=== PATIENT | female | born 1995 | race Caucasian/White ===

== ENCOUNTER 2016-11-16 16:58 | Emergency (ER) | payer OTHER ==
[2016-11-16 17:03] VITALS: TEMP 98.2; BMI 38.3
[2016-11-16 19:53] LABS: BASOPHIL 0.4 % (0-2.0); EOSINOPHIL 5.1 % (0-4.5); MCH 26.4 pg (25.7-33.7); MEAN CELL VOLUME 82.5 fl (80-96); MEAN PLT VOLUME 8.8 fl (7.5-11.1); NEUTROPHILS 61.9 % (42.8-82.8); PLATELET COUNT 290 K/MM3 (134-434); RDW 15.3 % (11.6-15.6); WHITE BLOOD COUNT 9.1 K/mm3 (4.0-10.0)
[2016-11-16 19:59] LABS: URINE APPEARANCE CLEAR; URINE BILIRUBIN NEGATIVE (NEGATIVE); URINE COLOR STRAW; URINE GLUCOSE (UA) NEGATIVE (NEGATIVE); URINE KETONE NEGATIVE (NEGATIVE); URINE NITRITE NEGATIVE (NEGATIVE); URINE PROTEIN NEGATIVE (NEGATIVE); URINE UROBILINOGEN NEGATIVE E.U./dl (0.2-1.0)
--- NOTE | 2016-11-16 20:01 | PDOC ---
History of Present Illness - General Chief Complaint: Vaginal Bleeding Stated Complaint: VAGINAL BLEEDING Time Seen by Provider: 11/16/16 19:36 History Source: Patient Exam Limitations: No Limitations - History of Present Illness Initial Comments: 11/16/16 19:58 Patient is a 21 LMP 09/04/16 complaining vaginal spotting started at midday. states she had some lower back pain earlier in the day but currently has no pain. She has had no OBS care for this . Has appointment tomorrow PMD: does not remember name, PMHX: neg PSOCHX: neg etoh, drug, cig ALL: NKDA GENERAL/CONSTITUTIONAL: [No fever or chills. No weakness. No weight change.] HEAD, EYES, EARS, NOSE AND THROAT: [No change in vision. No ear pain or discharge. No sore throat.] CARDIOVASCULAR: [No chest pain or shortness of breath.] RESPIRATORY: [No cough, wheezing, or hemoptysis.] GASTROINTESTINAL: [No nausea, vomiting, diarrhea or constipation. No rectal bleeding.] GENITOURINARY: [No dysuria, frequency, or change in urination.] MUSCULOSKELETAL: [No joint or muscle swelling or pain. No neck or back pain.] SKIN AND BREASTS: [No rash or easy bruising.] NEUROLOGIC: [No headache, vertigo, loss of consciousness, or loss of sensation.] PSYCHIATRIC: [No depression or anxiety.] ENDOCRINE: [No increased thirst. No abnormal weight change.] HEMATOLOGIC/LYMPHATIC: [No anemia, easy bleeding, or history of blood clots.] ALLERGIC/IMMUNOLOGIC: [No hives or skin allergy. No latex allergy.] GENERAL: [The patient is awake, alert, and fully oriented, in no acute distress. ] HEAD: [Normal with no signs of trauma.] EYES: [Pupils equal, round and reactive to light, extraocular movements intact, sclera anicteric, conjunctiva clear.] ENT: [Ears normal, nares patent, oropharynx clear without exudates. Moist mucous membranes.] NECK: [Normal range of motion, supple without lymphadenopathy, JVD, or masses.] LUNGS: [Breath sounds equal, clear to auscultation bilaterally. No wheezes, and no crackles.] HEART: [Regular rate and rhythm, normal S1 and S2 without murmur, rub.] ABDOMEN: [Soft, nontender, normoactive bowel sounds. No guarding, no rebound. No masses.] PELVIC: normal external genitalia, small amount of pink stain in vault, irritation to the cervix, no bleeding from closed os EXTREMITIES: [Normal range of motion, no edema. No clubbing or cyanosis. No cords, erythema, or tenderness.] NEUROLOGICAL: [Cranial nerves II through XII grossly intact. Normal speech, normal gait.] PSYCH: [Normal mood, normal affect.] SKIN: [Warm, Dry, normal turgor, no rashes or lesions noted.] Past History - Past Medical History Allergies/Adverse Reactions: Allergies Allergy/AdvReac Type Severity Reaction Status Date / Time No Known Allergies Allergy Verified 11/16/16 16:59 Home Medications: Ambulatory Orders NK [No Known Home Medication] 07/23/16 Other medical history: denies - Reproductive History Is Patient Now?: Yes (#): 3 Para: 0 Spontaneous : 2 - Psycho/Social/Smoking Cessation Hx Anxiety: No Suicidal Ideation: No Smoking History: Never smoked Have you smoked in the past 12 months: No Number of Cigarettes Smoked Daily: 0 Information on smoking cessation initiated: No Hx Alcohol Use: No Drug/Substance Use Hx: No Substance Use Type: None *Physical Exam - Vital Signs Last Vital Signs Temp Pulse Resp BP Pulse Ox 98.2 F 73 19 108/67 100 11/16/16 16:59 11/16/16 16:59 11/16/16 16:59 11/16/16 16:59 11/16/16 16:59 ED Treatment Course - LABORATORY CBC & Chemistry Diagram: 11/16/16 19:48 11/16/16 19:48 Medical Decision Making - Medical Decision Making 11/16/16 20:34 Patient is a 21 y.o female LMP 09/04/16 c/o vaginal spotting consistent with threatened ab. bedside US done (+) IUP FHR 171, labs pending 11/16/16 21:20 Laboratory Tests 11/16/16 11/16/16 19:48 19:48 WBC 9.1 Hgb 12.4 Hct 38.7 Plt Count 290 Sodium 140 Potassium 3.8 Chloride 106 Carbon Dioxide 25 Anion Gap 9 BUN 6 L D Creatinine 0.6 Beta HCG, Quant 85417.3 T&S O+ I discussed the physical exam findings, ancillary test results and final diagnoses with the patient. I answered all of the patient's questions. The patient was satisfied with the care received and felt comfortable with the discharge plan and treatment plan. The Patient agrees to follow up with the primary care physician within 24-72 hours. *DC/Admit/Observation/Transfer Diagnosis at time of Disposition: Threatened - Discharge Dispostion Disposition: HOME Condition at time of disposition: Stable - Referrals Referrals: Sacha Ledezma [Primary Care Provider] - - Patient Instructions Printed Discharge Instructions: DI for Threatened Additional Instructions: Your Discharge Instructions: You must call primary care physician within 24 hours to arrange follow-up. Return to the Emergency Department with any new, persistent or worsening symptoms, for fever, chills, SOB, dizziness or any other concerning changes that may occur. keep your follow up appointment for tomorrow.
[2016-11-16 20:04] LABS: URINE BLOOD 2+ (NEGATIVE); URINE LEUK ESTERASE 2+ (NEGATIVE)
[2016-11-16 20:05] LABS: URINE BACTERIA RARE /hpf (NONE SEEN); URINE RBC 4 /hpf (0-3); URINE WBC 4 /hpf (3-5)
[2016-11-16 20:21] LABS: ALBUMIN 3.9 g/dl (3.4-5.0); ALK PHOS 94 U/L (45-117); ANION GAP 9 (8-16); BILIRUBIN,TOTAL 0.2 mg/dL (0.2-1.0); CALCIUM 8.5 mg/dL (8.5-10.1); CO2 25 mmol/L (21-32); CREATININE 0.6 mg/dL (0.55-1.02); GLUCOSE,RANDOM 100 mg/dL (74-106); SGOT/AST 9 U/L (15-37); SGPT/ALT 29 U/L (12-78); TOT PROT 7.4 g/dl (6.4-8.2)
[2016-11-16 20:50] VITALS: BP 129/85; PULSE 89
== END 2016-11-16 21:38 | disposition home or self-care (01) ==
LOC: JER 16:58
DX: O20.0 Threatened abortion (principal); Z3A.12 12 weeks gestation of pregnancy
CPT/HCPCS: 36415; 80053; 81003; 81015; 84702; 85025; 86850; 86900; 86901; 99282-25

== ENCOUNTER 2017-06-04 08:20 | Inpatient (IN) | payer OTHER ==
[2017-06-04] MEDS ORDERED: AMPICILLIN IVPB ONE (10:55)
[2017-06-04] MEDS ORDERED: SODIUM CHLORIDE IVPB ONE (10:55)
[2017-06-04] MEDS ORDERED: AMPICILLIN - 2 GM in SODIUM CHLORIDE 100 ML IVPB SCH (11:00)
[2017-06-04] MEDS ORDERED: OXYTOCIN 15 UNITS/ LR 250 ML 250 ML IVPB SCH (11:00)
[2017-06-04] MEDS ORDERED: DEXTROSE 5%-LACTATED RINGERS 1,000 ML IV SCH (11:00)
[2017-06-04 12:12] VITALS: BMI 36.0
[2017-06-04 12:16] LABS: BASOPHIL 0.3 % (0-2.0); EOSINOPHIL 0.4 % (0-4.5); MCH 25.1 pg (25.7-33.7); MCHC 32.7 g/dl (32.0-36.0); MEAN CELL VOLUME 76.7 fl (80-96); NEUTROPHILS 73.9 % (42.8-82.8); PLATELET COUNT 297 K/MM3 (134-434); RDW 14.1 % (11.6-15.6); WHITE BLOOD COUNT 9.4 K/mm3 (4.0-10.0)
[2017-06-04 12:41] LABS: INR 0.98 (0.82-1.09); PROTHROMBIN TIME (PATIENT) 10.8 SEC (9.98-11.88)
[2017-06-04 12:43] LABS: ACTIVATED PTT 27.2 SECONDS (26.9-34.4)
[2017-06-04 12:46] LABS: ANION GAP 8 (8-16); CO2 26 mmol/L (21-32); CREATININE 0.5 mg/dL (0.55-1.02); GLUCOSE,RANDOM 82 mg/dL (74-106)
[2017-06-04 14:14] LABS: URINE MARIJUANA THC NEGATIVE ng/ml (CUTOFF=50)
[2017-06-04] MEDS: AMPICILLIN - 1 GM in SODIUM CHLORIDE 100 ML IVPB SCH ×2 (14:40→18:45)
--- NOTE | 2017-06-04 15:20 | PN ---
Progress Note (short form) - Note Progress Note: cx 2 cm 75 vx -3 mr, fhr cat 1, no contraction, pitocin rba discussed , agreed to have pitocin
[2017-06-04] MEDS ORDERED: PROMETHAZINE HCL 25 MG/1 ML VIAL IVPUSH ONE (18:00)
[2017-06-04] MEDS ORDERED: BUTORPHANOL TARTRATE 1 MG/ML VIAL IVPUSH ONE (18:00)
--- NOTE | 2017-06-04 18:08 | PN ---
Progress Note (short form) - Note Progress Note: variable decel after reciving stadol, cx 4 cm 80 vx -1 mr, saclp electode applied , o2. lt side, increase iv fluid , pitocin stopped , revaluate
[2017-06-04 20:02] LABS: ARTERIAL BLD GAS O2 SATURATION 47.4 % (90-98.9); ARTERIAL BLOOD GAS BASE EXCESS -5.2 meq/l (-2-2); ARTERIAL BLOOD GAS HCO3 22.7 meq/L (22-26); ARTERIAL BLOOD GAS PO2 24.5 mmHg (80-100)
[2017-06-04 20:07] LABS: PT. ON O2? NO
[2017-06-04 20:09] LABS: ARTERIAL BLOOD GAS pH 7.23 (7.35-7.45)
[2017-06-04] MEDS ORDERED: D5W-LR W/ 20 UNITS OXYTOCIN 1,000 ML IV SCH ×2 (21:00→22:00)
[2017-06-04] MEDS ORDERED: IBUPROFEN 600 MG TABLET (FP) PO PRN (21:58)
[2017-06-04] MEDS ORDERED: oxyCODONE HCL 5 MG TABLET PO PRN (21:58)
[2017-06-04] MEDS ORDERED: BISACODYL 10 MG SUPP.RECT RC PRN (21:58)
[2017-06-04] MEDS ORDERED: WITCH HAZEL 50% (TUCKS) 40 PAD/JAR PAD TP PRN (21:58)
[2017-06-04] MEDS ORDERED: BENZOCAINE 20% 57 GM BOTTLE TP PRN (21:58)
[2017-06-04] MEDS ORDERED: BENZOCAINE 28 GM HEMORRHOIDAL OINTMENT TP PRN (21:58)
[2017-06-04] MEDS ORDERED: ACETAMINOPHEN 325 MG TABLET (FP) PO PRN (21:58)
[2017-06-04] MEDS ORDERED: METHYLERGONOVINE MALEATE 0.2 MG/1 ML AMP IM PRN (21:58)
[2017-06-05] MEDS: FERROUS SO4 325 MG TABLET (FP) PO SCH ×3 (00:43→21:42)
--- NOTE | 2017-06-05 02:29 | PN ---
Progress Note (short form) - Note Progress Note: ppd 1 doing well, no c/o voids ok Last Vital Signs Temp Pulse Resp BP Pulse Ox 98.5 F 69 18 118/69 06/04/17 20:10 06/04/17 20:30 06/04/17 20:30 06/04/17 20:30 uterus firm, non tender lochia mild no calf tenderness plan ambualte ,cbc
[2017-06-05 09:08] LABS: BASOPHIL 0.2 % (0-2.0); EOSINOPHIL 0.6 % (0-4.5); MCH 24.8 pg (25.7-33.7); MCHC 32.1 g/dl (32.0-36.0); MEAN CELL VOLUME 77.2 fl (80-96); MEAN PLT VOLUME 9.5 fl (7.5-11.1); NEUTROPHILS 70.1 % (42.8-82.8); PLATELET COUNT 254 K/MM3 (134-434); RDW 14.4 % (11.6-15.6)
[2017-06-05] MEDS ORDERED: DIPHTH,PERTUSS(ACELL),TET 0.5 ML DISP.SYRIN IM ONE (10:00)
[2017-06-05] MEDS: PRENATAL VITAMINS W/ FOLIC ACID TABLET (FP) PO SCH (10:21)
[2017-06-05] MEDS ORDERED: SENNOSIDES/DOCUSATE COMBO (SENNA PLUS) TABLET (UD) PO PRN (22:00)
[2017-06-06 08:26] VITALS: BP 132/76; PULSE 84; TEMP 97.9
[2017-06-06] MEDS: PRENATAL VITAMINS W/ FOLIC ACID TABLET (FP) PO SCH (09:20)
[2017-06-06] MEDS: FERROUS SO4 325 MG TABLET (FP) PO SCH (09:20)
--- NOTE | 2017-06-06 10:47 | PN ---
Post Progress Note Post Day: 2 Type of Delivery: Vital Signs: Vital Signs Temperature 97.9 F 06/06/17 08:24 Pulse Rate 84 06/06/17 08:24 Respiratory Rate 20 06/06/17 08:24 Blood Pressure 132/76 06/06/17 08:24 O2 Sat by Pulse Oximetry (%) Uterus: Yes: Fundus Firm Abdomen/GI: Yes: Abdomen soft Lochia: Yes: Rubra Lochia, amount: Small Perineum: Yes: Intact Activity: Ambulating - Labs Labs: CBC WBC 12.0 K/mm3 (4.0-10.0) H 06/05/17 08:00 RBC 3.61 M/mm3 (3.60-5.2) D 06/05/17 08:00 Hgb 8.9 GM/dL (10.7-15.3) L D 06/05/17 08:00 Hct 27.8 % (32.4-45.2) L D 06/05/17 08:00 MCV 77.2 fl (80-96) L 06/05/17 08:00 MCH 24.8 pg (25.7-33.7) L 06/05/17 08:00 MCHC 32.1 g/dl (32.0-36.0) 06/05/17 08:00 RDW 14.4 % (11.6-15.6) 06/05/17 08:00 Plt Count 254 K/MM3 (134-434) 06/05/17 08:00 MPV 9.5 fl (7.5-11.1) 06/05/17 08:00 Neutrophils % 70.1 % (42.8-82.8) 06/05/17 08:00 Lymphocytes % 21.5 % (8-40) 06/05/17 08:00 Monocytes % 7.6 % (3.8-10.2) D 06/05/17 08:00 Eosinophils % 0.6 % (0-4.5) 06/05/17 08:00 Basophils % 0.2 % (0-2.0) 06/05/17 08:00 Assessment/Plan as above oob dc home today
== END 2017-06-06 12:45 | disposition home or self-care (01) | DRG 560 ==
LOC: JDEL 08:20 → JLDR 10:10 → J3W 21:11
PROVIDERS: ADMIT Obstetrics & Gynecology; ATTEND Obstetrics & Gynecology
PROC: 10E0XZZ Delivery of Products of Conception, External Approach (ICD-10-PCS; principal; 2017-06-04)
DX: O80 Encounter for full-term uncomplicated delivery (principal); Z3A.37 37 weeks gestation of pregnancy; Z37.0 Single live birth
CPT/HCPCS: 36415; 36600; 59409; 80048; 80307; 82803; 85025; 85610; 85730; 86593; 86850; 86900; 86901; 90715

== ENCOUNTER 2020-09-28 07:14 | Inpatient (IN) | payer OTHER ==
[2020-09-28] MEDS: DEXTROSE 5%-LACTATED RINGERS 1,000 ML IV SCH (08:00)
[2020-09-28] MEDS ORDERED: PROMETHAZINE HCL 25 MG/1 ML VIAL IVPUSH ONE (08:42)
[2020-09-28] MEDS ORDERED: BUTORPHANOL TARTRATE 1 MG/ML VIAL IVPUSH ONE (08:42)
[2020-09-28 08:47] VITALS: BMI 40.7
[2020-09-28 08:52] LABS: BASO % 0.6 % (0-2.0); EOS % 1.2 % (0-4.5); HEMATOCRIT 33.6 % (32.4-45.2); HEMOGLOBIN 10.5 GM/dL (10.7-15.3); MCH 24.4 pg (25.7-33.7); MCHC 31.4 g/dl (32.0-36.0); MEAN CELL VOLUME 77.8 fl (80-96); MEAN PLT VOLUME 9.2 fl (7.5-11.1); MONO % 4.1 % (3.8-10.2); NEUT % 73.1 % (42.8-82.8); PLATELET COUNT 299 K/MM3 (134-434); RBC 4.32 M/mm3 (3.60-5.2); WHITE BLOOD COUNT 7.3 K/mm3 (4.0-10.0)
[2020-09-28] MEDS ORDERED: OXYTOCIN 30 UNITS in 0.9% NS 30 UNIT/500 ML INFUS.BAG IVPB ONE (08:53)
[2020-09-28] MEDS: OXYTOCIN 30 UNITS in 0.9% NS 30 UNIT/500 ML INFUS.BAG IVPB SCH (09:00)
[2020-09-28 09:08] LABS: INR 0.95 (0.83-1.09); PROTHROMBIN TIME (PATIENT) 11.5 SEC (9.7-13.0)
[2020-09-28 09:10] LABS: ACTIVATED PTT 26.6 SECONDS (25.2-36.5)
[2020-09-28 09:19] LABS: POTASSIUM 4.2 mmol/L (3.5-5.1)
[2020-09-28 09:20] LABS: CALCIUM 8.6 mg/dL (8.5-10.1)
[2020-09-28 09:22] LABS: BLOOD UREA NITROGEN 6.2 mg/dL (7-18)
[2020-09-28 09:24] LABS: CREATININE 0.6 mg/dL (0.55-1.3)
[2020-09-28] MEDS ORDERED: PROMETHAZINE HCL 25 MG/1 ML VIAL ONE ×2 (10:49→12:46)
[2020-09-28] MEDS ORDERED: BUTORPHANOL TARTRATE 2 MG/ML VIAL ONE (10:49)
[2020-09-28] MEDS ORDERED: BUTORPHANOL TARTRATE 1 MG/ML VIAL ONE (12:46)
[2020-09-28] MEDS ORDERED: OXYTOCIN 20 UNITS in 0.9% NS 20 UNIT/1,000 ML INFUS.BAG IV ONE (12:47)
[2020-09-28] MEDS ORDERED: BUTORPHANOL TARTRATE 1 MG/ML VIAL IVPB ONE (13:30)
[2020-09-28] MEDS ORDERED: PROMETHAZINE HCL 25 MG/1 ML VIAL IVPB ONE (13:30)
[2020-09-28] MEDS: OXYTOCIN 20 UNITS in 0.9% NS 20 UNIT/1,000 ML INFUS.BAG IV SCH (13:30)
[2020-09-28] MEDS ORDERED: BENZOCAINE 20% 57 GM BOTTLE TP PRN (13:46)
[2020-09-28] MEDS ORDERED: METHYLERGONOVINE MALEATE 0.2 MG/1 ML AMP IM PRN (13:46)
[2020-09-28] MEDS ORDERED: BENZOCAINE 28 GM HEMORRHOIDAL OINTMENT TP PRN (13:46)
[2020-09-28] MEDS ORDERED: WITCH HAZEL 50% (TUCKS) 40 PAD/JAR PAD TP PRN (13:46)
[2020-09-28] MEDS ORDERED: IBUPROFEN 600 MG TABLET (FP) PO PRN (13:46)
[2020-09-28] MEDS ORDERED: BISACODYL 10 MG SUPP.RECT RC PRN (13:46)
[2020-09-28] MEDS ORDERED: ACETAMINOPHEN 325 MG TABLET (FP) PO PRN (13:46)
[2020-09-28] MEDS: FERROUS SO4 325 MG TABLET (FP) PO SCH (23:06)
[2020-09-29 06:53] LABS: BASO % 0.5 % (0-2.0); EOS % 1.9 % (0-4.5); HEMATOCRIT 32.6 % (32.4-45.2); HEMOGLOBIN 10.4 GM/dL (10.7-15.3); LYMPH % 21.8 % (8-40); MCH 24.4 pg (25.7-33.7); MCHC 31.7 g/dl (32.0-36.0); MEAN CELL VOLUME 76.8 fl (80-96); MEAN PLT VOLUME 8.8 fl (7.5-11.1); MONO % 5.2 % (3.8-10.2); NEUT % 70.6 % (42.8-82.8); PLATELET COUNT 277 K/MM3 (134-434); RBC 4.25 M/mm3 (3.60-5.2); RDW 15.2 % (11.6-15.6); WHITE BLOOD COUNT 8.7 K/mm3 (4.0-10.0)
[2020-09-29] MEDS: FERROUS SO4 325 MG TABLET (FP) PO SCH ×2 (09:19→21:07)
[2020-09-29] MEDS: PRENATAL VITAMINS W/ FOLIC ACID TABLET (FP) PO SCH (09:19)
[2020-09-29] MEDS ORDERED: DIPHTH,PERTUSS(ACELL),TET 0.5 ML DISP.SYRIN IM ONE (10:00)
[2020-09-29] MEDS: OXYTOCIN 20 UNITS in 0.9% NS 20 UNIT/1,000 ML INFUS.BAG IV SCH (19:55)
[2020-09-29] MEDS: OXYTOCIN 30 UNITS in 0.9% NS 30 UNIT/500 ML INFUS.BAG IVPB SCH (19:55)
[2020-09-29] MEDS: DEXTROSE 5%-LACTATED RINGERS 1,000 ML IV SCH (19:55)
[2020-09-29] MEDS ORDERED: SENNOSIDES/DOCUSATE COMBO (SENNA PLUS) TABLET (UD) PO PRN (22:00)
[2020-09-30 11:13] VITALS: BP 121/77; PULSE 93; TEMP 98.4
[2020-09-30] MEDS: FERROUS SO4 325 MG TABLET (FP) PO SCH (11:27)
[2020-09-30] MEDS: PRENATAL VITAMINS W/ FOLIC ACID TABLET (FP) PO SCH (11:28)
[2020-10-01 08:49] LABS: POC NITRAZINE POS
== END 2020-09-30 13:00 | disposition home or self-care (01) | DRG 560 ==
LOC: JLDR 07:14 → J3W 16:55
PROVIDERS: ADMIT Obstetrics & Gynecology; ATTEND Obstetrics & Gynecology
PROC: 10E0XZZ Delivery of Products of Conception, External Approach (ICD-10-PCS; principal; 2020-09-28)
DX: O42.02 Full-term premature rupture of membranes, onset of labor within 24 hours of rupture (principal); O48.0 Post-term pregnancy; Z37.0 Single live birth; Z3A.40 40 weeks gestation of pregnancy; Z86.2 Personal history of diseases of the blood and blood-forming organs and certain disorders involving the immune mechanism
CPT/HCPCS: 36415; 59409; 80048; 83986-QW; 85025; 85610; 85730; 86762; 86780; 86850; 86900; 86901; 87340; C9803; U0003

== ENCOUNTER 2021-07-26 09:06 | Emergency (ER) | payer OTHER ==
[2021-07-26 09:25] VITALS: BP 119/79; PULSE 92; TEMP 98.3; BMI 31.8
[2021-07-26] MEDS ORDERED: IBUPROFEN 400 MG TABLET (FP) PO ONE ×2 (09:54→10:07)
== END 2021-07-26 10:30 | disposition home or self-care (01) ==
LOC: JER 09:06
DX: R51.9 Headache, unspecified (principal)
CPT/HCPCS: 84703; 99283-25

== ENCOUNTER 2024-01-16 12:59 | Emergency (ER) | payer OTHER ==
[2024-01-16 13:30] VITALS: BP 118/78; PULSE 84; RESP 20; TEMP 98.2; BMI 30.2
== END 2024-01-16 15:14 | disposition home or self-care (01) ==
LOC: FER 12:59
DX: M25.512 Pain in left shoulder (principal); R07.89 Other chest pain
CPT/HCPCS: 71046-TC-FY; 93005; 99284-25

== ENCOUNTER 2024-09-12 17:35 | Emergency (ER) | payer OTHER ==
[2024-09-12 17:43] VITALS: BP 127/81; PULSE 85; RESP 18; TEMP 97.8; BMI 44.9
== END 2024-09-12 19:30 | disposition home or self-care (01) ==
LOC: JERFT 17:35 → JER 17:35 → JERFT 19:30
DX: N61.1 Abscess of the breast and nipple (principal)
CPT/HCPCS: 99283-25

== ENCOUNTER 2025-01-02 09:38 | Emergency (ER) | payer OTHER ==
[2025-01-02 09:56] VITALS: BP 113/73; PULSE 96; RESP 19; TEMP 99.5; BMI 34.3
[2025-01-02] MEDS ORDERED: ACETAMINOPHEN 500 MG TABLET (FP) ONE (10:30)
[2025-01-02] MEDS ORDERED: KETOROLAC TROMETHAMINE 30 MG/1 ML VIAL ONE (10:32)
[2025-01-02] MEDS: ACETAMINOPHEN 500 MG TABLET (FP) PO ONE (10:32)
[2025-01-02] MEDS: KETOROLAC TROMETHAMINE 30 MG/1 ML VIAL IM ONE (10:40)
== END 2025-01-02 11:21 | disposition home or self-care (01) ==
LOC: JERFT 09:38
PROC: 3E0233Z Introduction of Anti-inflammatory into Muscle, Percutaneous Approach (ICD-10-PCS; principal; 2025-01-02)
DX: J10.1 Influenza due to other identified influenza virus with other respiratory manifestations (principal); R09.81 Nasal congestion; R05.9 Cough, unspecified; R11.0 Nausea; R68.83 Chills (without fever); Z20.822 Contact with and (suspected) exposure to COVID-19
CPT/HCPCS: 0241U-QW; 96374; 99284-25